=== PATIENT | female | born 1955 | race Two or more races ===

== ENCOUNTER 2020-12-13 05:26 | Day surgery (SDC) | payer OTHER ==
[~2020-12-13 05:26] MED LIST: INDAPAMIDE1.25 MG PO; LOSARTAN-HCTZ1 EAC2 PO; MAXIMUM D3325 MCG PO; OMEGA-31000 MG PO; POTASSIUM CHLO20 ME1 PO; ROSUVASTATIN CA20 MG PO; ZYLOPRIM100 M1 PO
[2020-12-13] MEDS ORDERED: PERCOCET 5-3251 EACH PO (09:11)
== END 2020-12-13 12:25 | disposition home or self-care (01) ==
LOC: CIR.AMB 05:26
PROVIDERS: ATTEND Surgery
DX: D35.1 Benign neoplasm of parathyroid gland (principal); Z20.822 Contact with and (suspected) exposure to COVID-19